=== PATIENT | female | born 1935 | race Caucasian/White ===

== ENCOUNTER 2017-07-18 22:56 | Emergency (ER) | payer MEDICARE, OTHER ==
[2017-07-18] MEDS ORDERED: SODIUM CHLORIDE 0.9% 1000ML 1,000 ML IV SCH (23:15)
[2017-07-18 23:32] LABS: HEMATOCRIT 52 % (35-47); MEAN CORPUSCULAR HEMOGLOBIN 30.5 pg (27.0-32.0); MEAN CORPUSCULAR HGB CONC 34.9 gm/dl (32.0-36.0); MEAN CORPUSCULAR VOLUME 87 fL (81-99)
[2017-07-18] MEDS ORDERED: SODIUM CHLORIDE 0.9% FLUSH 10 ML SOL IV PRN (23:34)
[2017-07-18] MEDS ORDERED: ACETAMINOPHEN 325 MG PO ONE (23:39)
[2017-07-18] MEDS ORDERED: ALBUTEROL NEB SOL 2.5MG/3ML 1 VIAL SOL NEB ONE (23:40)
[2017-07-18] MEDS ORDERED: ALBUTEROL NEB SOL 2.5MG/3ML 1 VIAL SOL ONE (23:41)
[2017-07-18] MEDS ORDERED: ACETAMINOPHEN 325 MG ONE (23:41)
[2017-07-18 23:43] LABS: HEMOGLOBIN 18.1 gm/dl (12.0-15.5)
[2017-07-18 23:49] LABS: INR 1.13 (0.86-1.12)
[2017-07-18 23:53] LABS: BAND NEUTROPHILS % (MANUAL) 9 %; BASOPHILS % (MANUAL) 0 % (0-3); BURR CELLS PRESENT; EOSINOPHILS % (MANUAL) 0 % (0-9); LYMPHOCYTES % (MANUAL) 4 % (10-50); MONOCYTES % (MANUAL) 7 % (0-12); NEUTROPHILS % (MANUAL) 80 % (37-80); POIKILOCYTOSIS SLIGHT AMT
[2017-07-18 23:54] LABS: ALBUMIN 3.1 gm/dl (3.4-5.0); CARBON DIOXIDE 25.7 mEq/L (21-32); CREATININE 1.38 mg/dl (0.60-1.00); POTASSIUM 3.7 mMol/L (3.5-5.1); THYROID STIMULATING HORMONE 4.277 uIU/ml (0.358-3.740); TROP I 0.426 ng/ml (0.000-0.056)
[2017-07-19] MEDS ORDERED: CEFTRIAXONE 1 GM PDS 2 GM in SODIUM CHLORIDE 0.9% 50 ML 50 ML IV ONE (00:06)
[2017-07-19] MEDS ORDERED: AZITHROMYCIN 500 MG PDS IV SCH (00:15)
[2017-07-19] MEDS ORDERED: SODIUM CHLORIDE 0.9% 1000ML 1,000 ML IV ONE (00:36)
[2017-07-19] MEDS ORDERED: AZITHROMYCIN 500 MG PDS IV ONE (00:39)
[2017-07-19] MEDS ORDERED: CEFTRIAXONE 1 GM PDS ONE (00:41)
[2017-07-19 01:03] LABS: APPEARANCE,URINE Clear; BILIRUBIN,URINE 1+ (NEGATIVE); COLOR,URINE Orange; GLUCOSE, URINE (UA) NEGATIVE (NEGATIVE); KETONES,URINE NEGATIVE (NEGATIVE); LEUKOCYTE ESTERASE ,URINE NEGATIVE (NEGATIVE); NITRATE,URINE NEGATIVE (NEGATIVE); OCCULT BLOOD,URINE 2+ (NEG-TRACE)
[2017-07-19] MEDS ORDERED: DILTIAZEM 5 MG/ML SOL IV ONE ×4 (01:04→01:08)
[2017-07-19] MEDS ORDERED: ASPIRIN 81 MG CHEWABLE CTB PO ONE (01:10)
[2017-07-19] MEDS ORDERED: ASPIRIN 81 MG CHEWABLE CTB ONE (01:10)
[2017-07-19] MEDS ORDERED: DILTIAZEM 5 MG/ML 125 MG in SODIUM CHLORIDE 0.9% 100 ML 100 ML IV SCH (01:15)
[2017-07-19 01:18] LABS: BACTERIA 3+ (< 1+); CRYSTALS NEGATIVE (0-3 AVE/HPF); ICTOTEST,URINE NEGATIVE (NEGATIVE)
[2017-07-19 01:49] VITALS: TEMP 100.2
[2017-07-19 02:12] VITALS: BP 125/69; PULSE 130; RESP 20; O2SAT 94
== END 2017-07-19 01:25 | disposition short-term general hospital (02) | DRG 871 ==
LOC: ED 22:56
DX: A41.9 Sepsis, unspecified organism (principal); J18.9 Pneumonia, unspecified organism; I48.91 Unspecified atrial fibrillation; I50.9 Heart failure, unspecified; M62.82 Rhabdomyolysis; N39.0 Urinary tract infection, site not specified; R79.89 Other specified abnormal findings of blood chemistry; E03.9 Hypothyroidism, unspecified; S40.211A Abrasion of right shoulder, initial encounter; S00.81XA Abrasion of other part of head, initial encounter; W19.XXXA Unspecified fall, initial encounter; R53.1 Weakness; R40.2362 Coma scale, best motor response, obeys commands, at arrival to emergency department; R40.2142 Coma scale, eyes open, spontaneous, at arrival to emergency department; R40.2252 Coma scale, best verbal response, oriented, at arrival to emergency department
CPT/HCPCS: 36415; 70450; 71045; 72125; 73030; 80053; 81001; 82550; 83880; 84443; 84484; 85007; 85027; 85610; 87040; 87088; 93005; 96365; 96366; 96374; 99070; 99291; 99292; J0456; J0696; J7613; J3490

== ENCOUNTER 2017-11-10 12:58 | Inpatient (IN) | payer MEDICARE, OTHER ==
[2017-11-10 13:56] LABS: BASOPHILS % (AUTO) 1 % (0-3); EOSINOPHILS % (AUTO) 0 % (0-9); HEMATOCRIT 50 % (35-47); HEMOGLOBIN 16.1 gm/dl (12.0-15.5); LYMPHOCYTES % (AUTO) 9.9 % (10-50); MEAN CORPUSCULAR HEMOGLOBIN 29.6 pg (27.0-32.0); MEAN CORPUSCULAR HGB CONC 32.1 gm/dl (32.0-36.0); MEAN CORPUSCULAR VOLUME 92 fL (81-99); MONOCYTES % (AUTO) 6.1 % (0-12); NEUTROPHILS % (AUTO) 83.4 % (37-80)
[2017-11-10] MEDS ORDERED: SODIUM CHLORIDE 0.9% 1000ML 1,000 ML IV ONE (13:56)
[2017-11-10] MEDS ORDERED: ONDANSETRON HCL 4 MG/2 ML SOL ONE (14:04)
[2017-11-10] MEDS: ONDANSETRON HCL 4 MG/2 ML SOL IV ONE (14:05)
[2017-11-10 14:06] LABS: ALBUMIN 2.5 gm/dl (3.4-5.0); BILIRUBIN,TOTAL 1.8 mg/dl (0.2-1.0); CALCIUM 8.2 mg/dl (8.5-10.1); CARBON DIOXIDE 29.5 mEq/L (21-32); CREATININE 1.15 mg/dl (0.60-1.00); POTASSIUM 3.4 mMol/L (3.5-5.1); TOTAL PROTEIN 6.3 gm/dl (6.4-8.2)
[2017-11-10] MEDS: DEXTROSE/SALINE 0.45/KCL 20MEQ 1,000 ML/1,000 ML SOL IV SCH ×2 (16:52→23:44)
[2017-11-10] MEDS: ENOXAPARIN 40 MG SOL SC SCH (17:58)
[2017-11-11] MEDS: ACETAMINOPHEN 325 MG PO PRN ×2 (01:04→22:06)
[2017-11-11] MEDS: LEVOTHYROXINE SODIUM 50 MCG TAB PO SCH (06:26)
[2017-11-11] MEDS: DEXTROSE/SALINE 0.45/KCL 20MEQ 1,000 ML/1,000 ML SOL IV SCH ×3 (06:28→20:18)
[2017-11-11 07:34] LABS: CREATININE 1.17 mg/dl (0.60-1.00); POTASSIUM 3.6 mMol/L (3.5-5.1)
[2017-11-11 07:37] LABS: BASOPHILS % (AUTO) 0 % (0-3); EOSINOPHILS % (AUTO) 0 % (0-9); HEMATOCRIT 51 % (35-47); HEMOGLOBIN 16.5 gm/dl (12.0-15.5); LYMPHOCYTES % (AUTO) 7.3 % (10-50); MEAN CORPUSCULAR HEMOGLOBIN 30.2 pg (27.0-32.0); MEAN CORPUSCULAR HGB CONC 32.5 gm/dl (32.0-36.0); MEAN CORPUSCULAR VOLUME 93 fL (81-99); MONOCYTES % (AUTO) 8.9 % (0-12); NEUTROPHILS % (AUTO) 83.4 % (37-80)
[2017-11-11 07:48] LABS: CARBON DIOXIDE 27.9 mEq/L (21-32)
[2017-11-11] MEDS: POTASSIUM CHLORIDE 10 MEQ TER PO SCH (09:22)
[2017-11-11] MEDS: CHOLECALCIFEROL 1,000 IU TAB PO SCH (09:22)
[2017-11-11] MEDS: DILTIAZEM ER 120 MG C24 PO SCH (09:22)
[2017-11-11] MEDS: BUMETANIDE 1 MG TAB PO SCH (09:22)
[2017-11-11] MEDS: SERTRALINE HYDROCHLORIDE 50 MG TAB PO SCH (09:23)
[2017-11-11] MEDS: ENOXAPARIN 40 MG SOL SC SCH (09:23)
[2017-11-11] MEDS: ONDANSETRON HCL 4 MG/2 ML SOL IV ONE (12:20)
[2017-11-11] MEDS: ONDANSETRON 4 MG ODT BU PRN (16:31)
[2017-11-12] MEDS: DEXTROSE/SALINE 0.45/KCL 20MEQ 1,000 ML/1,000 ML SOL IV SCH ×3 (03:02→19:40)
[2017-11-12] MEDS: LEVOTHYROXINE SODIUM 50 MCG TAB PO SCH (06:58)
[2017-11-12] MEDS: ENOXAPARIN 40 MG SOL SC SCH (09:53)
[2017-11-12] MEDS: BUMETANIDE 1 MG TAB PO SCH (09:57)
[2017-11-12] MEDS: VANCOMYCIN HCL 125 MG CAP PO SCH ×4 (09:57→21:40)
[2017-11-12] MEDS: POTASSIUM CHLORIDE 10 MEQ TER PO SCH (09:58)
[2017-11-12] MEDS: SERTRALINE HYDROCHLORIDE 50 MG TAB PO SCH (09:58)
[2017-11-12] MEDS: CHOLECALCIFEROL 1,000 IU TAB PO SCH (09:58)
[2017-11-12] MEDS: DILTIAZEM ER 120 MG C24 PO SCH (09:58)
[2017-11-12] MEDS: ONDANSETRON 4 MG ODT BU PRN (17:17)
[2017-11-13] MEDS: LEVOTHYROXINE SODIUM 50 MCG TAB PO SCH (06:25)
[2017-11-13] MEDS: DEXTROSE/SALINE 0.45/KCL 20MEQ 1,000 ML/1,000 ML SOL IV SCH ×2 (07:16→17:18)
[2017-11-13 08:00] LABS: HEMATOCRIT 49 % (35-47); HEMOGLOBIN 16.4 gm/dl (12.0-15.5); MEAN CORPUSCULAR HGB CONC 33.1 gm/dl (32.0-36.0); MEAN CORPUSCULAR VOLUME 90 fL (81-99)
[2017-11-13 08:07] LABS: CALCIUM 8.2 mg/dl (8.5-10.1); CARBON DIOXIDE 23.4 mEq/L (21-32); POTASSIUM 4.4 mMol/L (3.5-5.1)
[2017-11-13 08:53] LABS: BAND NEUTROPHILS % (MANUAL) 6 %; BASOPHILS % (MANUAL) 0 % (0-3); EOSINOPHILS % (MANUAL) 0 % (0-9); LYMPHOCYTES % (MANUAL) 16 % (10-50); MONOCYTES % (MANUAL) 14 % (0-12); NEUTROPHILS % (MANUAL) 64 % (37-80); NORMAL RBCS NORMAL RBCS
[2017-11-13] MEDS: BUMETANIDE 1 MG TAB PO SCH (10:03)
[2017-11-13] MEDS: POTASSIUM CHLORIDE 10 MEQ TER PO SCH (10:03)
[2017-11-13] MEDS: DILTIAZEM ER 120 MG C24 PO SCH (10:03)
[2017-11-13] MEDS: VANCOMYCIN HCL 125 MG CAP PO SCH ×4 (10:04→20:47)
[2017-11-13] MEDS: CHOLECALCIFEROL 1,000 IU TAB PO SCH (10:04)
[2017-11-13] MEDS: SERTRALINE HYDROCHLORIDE 50 MG TAB PO SCH (10:05)
[2017-11-13] MEDS: ENOXAPARIN 40 MG SOL SC SCH (10:05)
[2017-11-14] MEDS: DEXTROSE/SALINE 0.45/KCL 20MEQ 1,000 ML/1,000 ML SOL IV SCH ×2 (01:45→12:33)
[2017-11-14] MEDS: LEVOTHYROXINE SODIUM 50 MCG TAB PO SCH (07:42)
[2017-11-14] MEDS: DILTIAZEM ER 120 MG C24 PO SCH (08:15)
[2017-11-14] MEDS: VANCOMYCIN HCL 125 MG CAP PO SCH ×4 (08:15→20:28)
[2017-11-14] MEDS: POTASSIUM CHLORIDE 10 MEQ TER PO SCH (08:15)
[2017-11-14] MEDS: CHOLECALCIFEROL 1,000 IU TAB PO SCH (08:15)
[2017-11-14] MEDS: SERTRALINE HYDROCHLORIDE 50 MG TAB PO SCH (08:16)
[2017-11-14] MEDS: ENOXAPARIN 40 MG SOL SC SCH (08:20)
[2017-11-14] MEDS: BUMETANIDE 1 MG TAB PO SCH (08:22)
[2017-11-15] MEDS: LEVOTHYROXINE SODIUM 50 MCG TAB PO SCH (06:19)
[2017-11-15] MEDS: BUMETANIDE 1 MG TAB PO SCH (09:12)
[2017-11-15] MEDS: DILTIAZEM ER 120 MG C24 PO SCH (09:13)
[2017-11-15] MEDS: VANCOMYCIN HCL 125 MG CAP PO SCH ×4 (09:13→20:25)
[2017-11-15] MEDS: SERTRALINE HYDROCHLORIDE 50 MG TAB PO SCH (09:13)
[2017-11-15] MEDS: POTASSIUM CHLORIDE 10 MEQ TER PO SCH (09:13)
[2017-11-15] MEDS: CHOLECALCIFEROL 1,000 IU TAB PO SCH (09:14)
[2017-11-15] MEDS: ENOXAPARIN 40 MG SOL SC SCH (09:23)
[2017-11-16] MEDS: LEVOTHYROXINE SODIUM 50 MCG TAB PO SCH (06:38)
[2017-11-16 07:10] LABS: CREATININE 0.91 mg/dl (0.60-1.00); POTASSIUM 4.2 mMol/L (3.5-5.1)
[2017-11-16 07:22] LABS: CALCIUM 7.8 mg/dl (8.5-10.1)
[2017-11-16 07:25] LABS: HEMATOCRIT 52 % (35-47); MEAN CORPUSCULAR HEMOGLOBIN 29.7 pg (27.0-32.0); MEAN CORPUSCULAR HGB CONC 32.5 gm/dl (32.0-36.0); MEAN CORPUSCULAR VOLUME 91 fL (81-99)
[2017-11-16 07:53] LABS: BAND NEUTROPHILS % (MANUAL) 27 %; BASOPHILS % (MANUAL) 0 % (0-3); EOSINOPHILS % (MANUAL) 2 % (0-9); LYMPHOCYTES % (MANUAL) 22 % (10-50); MONOCYTES % (MANUAL) 12 % (0-12); NEUTROPHILS % (MANUAL) 37 % (37-80); NORMAL RBCS PRESENT
[2017-11-16] MEDS: VANCOMYCIN HCL 125 MG CAP PO SCH ×4 (10:44→20:12)
[2017-11-16] MEDS: POTASSIUM CHLORIDE 10 MEQ TER PO SCH (10:44)
[2017-11-16] MEDS: DILTIAZEM ER 120 MG C24 PO SCH (10:44)
[2017-11-16] MEDS: BUMETANIDE 1 MG TAB PO SCH (10:44)
[2017-11-16] MEDS: CHOLECALCIFEROL 1,000 IU TAB PO SCH (10:45)
[2017-11-16] MEDS: ENOXAPARIN 40 MG SOL SC SCH (10:45)
[2017-11-16] MEDS: SERTRALINE HYDROCHLORIDE 50 MG TAB PO SCH (10:45)
[2017-11-17] MEDS: LEVOTHYROXINE SODIUM 50 MCG TAB PO SCH (06:40)
[2017-11-17] MEDS: POTASSIUM CHLORIDE 10 MEQ TER PO SCH (08:38)
[2017-11-17] MEDS: DILTIAZEM ER 120 MG C24 PO SCH (08:38)
[2017-11-17] MEDS: BUMETANIDE 1 MG TAB PO SCH (08:38)
[2017-11-17] MEDS: CHOLECALCIFEROL 1,000 IU TAB PO SCH (08:38)
[2017-11-17] MEDS: ENOXAPARIN 40 MG SOL SC SCH (08:39)
[2017-11-17] MEDS: VANCOMYCIN HCL 125 MG CAP PO SCH (08:39)
[2017-11-17] MEDS: SERTRALINE HYDROCHLORIDE 50 MG TAB PO SCH (08:39)
[2017-11-17] MEDS: METRONIDAZOLE 250 MG TAB PO SCH ×2 (13:02→20:48)
[2017-11-18] MEDS: LEVOTHYROXINE SODIUM 50 MCG TAB PO SCH (06:32)
[2017-11-18] MEDS: METRONIDAZOLE 250 MG TAB PO SCH ×3 (10:24→20:32)
[2017-11-18] MEDS: DILTIAZEM ER 120 MG C24 PO SCH (10:24)
[2017-11-18] MEDS: CHOLECALCIFEROL 1,000 IU TAB PO SCH (10:25)
[2017-11-18] MEDS: SERTRALINE HYDROCHLORIDE 50 MG TAB PO SCH (10:25)
[2017-11-18] MEDS: POTASSIUM CHLORIDE 10 MEQ TER PO SCH (10:25)
[2017-11-18] MEDS: ENOXAPARIN 40 MG SOL SC SCH (10:27)
[2017-11-18] MEDS: LACTOBACILLUS ACIDOPHILUS/PE 1 TAB TAB PO SCH (20:32)
[2017-11-19] MEDS: LEVOTHYROXINE SODIUM 50 MCG TAB PO SCH (06:01)
[2017-11-19] MEDS: LACTOBACILLUS ACIDOPHILUS/PE 1 TAB TAB PO SCH ×2 (09:42→20:11)
[2017-11-19] MEDS: DILTIAZEM ER 120 MG C24 PO SCH (09:42)
[2017-11-19] MEDS: METRONIDAZOLE 250 MG TAB PO SCH ×3 (09:42→20:13)
[2017-11-19] MEDS: POTASSIUM CHLORIDE 10 MEQ TER PO SCH (09:43)
[2017-11-19] MEDS: CHOLECALCIFEROL 1,000 IU TAB PO SCH (09:43)
[2017-11-19] MEDS: SERTRALINE HYDROCHLORIDE 50 MG TAB PO SCH (09:43)
[2017-11-19] MEDS: ENOXAPARIN 40 MG SOL SC SCH (09:44)
[2017-11-19] MEDS: CLOTRIMAZOLE 1% CREAM TOP SCH ×2 (13:16→20:11)
[2017-11-20] MEDS: LEVOTHYROXINE SODIUM 50 MCG TAB PO SCH (06:18)
[2017-11-20 07:33] VITALS: BP 100/60; PULSE 64; RESP 16; TEMP 98.4; O2SAT 95
[2017-11-20] MEDS: ENOXAPARIN 40 MG SOL SC SCH (08:47)
[2017-11-20] MEDS: DILTIAZEM ER 120 MG C24 PO SCH (08:48)
[2017-11-20] MEDS: LACTOBACILLUS ACIDOPHILUS/PE 1 TAB TAB PO SCH (08:48)
[2017-11-20] MEDS: POTASSIUM CHLORIDE 10 MEQ TER PO SCH (08:49)
[2017-11-20] MEDS: CHOLECALCIFEROL 1,000 IU TAB PO SCH (08:49)
[2017-11-20] MEDS: METRONIDAZOLE 250 MG TAB PO SCH (08:49)
[2017-11-20] MEDS: SERTRALINE HYDROCHLORIDE 50 MG TAB PO SCH (08:50)
[2017-11-20] MEDS: CLOTRIMAZOLE 1% CREAM TOP SCH (11:44)
== END 2017-11-20 13:10 | disposition swing bed (61) | DRG 945 ==
LOC: ED 12:58 → ACUTE CARE 15:45 → UNDOADMOB 15:45 → ACUTE CARE 16:05 → OBSVTOIN 11-12 08:45 → ACUTE CARE 11-12 17:09
PROVIDERS: ADMIT Family Medicine; ATTEND Family Medicine
PROC: F01H1ZZ Integumentary Integrity Assessment of Integumentary System - Whole Body (ICD-10-PCS; principal; 2017-11-15)
PROC: F01K5YZ Range of Motion and Joint Integrity Assessment of Musculoskeletal System - Upper Back / Upper Extremity using Other Equipment (ICD-10-PCS; 2017-11-15)
PROC: F01K0FZ Muscle Performance Assessment of Musculoskeletal System - Upper Back / Upper Extremity using Assistive, Adaptive, Supportive or Protective Equipment (ICD-10-PCS; 2017-11-15)
PROC: F02Z3ZZ Grooming/Personal Hygiene Assessment (ICD-10-PCS; 2017-11-15)
DX: R53.1 Weakness (principal); A04.9 Bacterial intestinal infection, unspecified; R11.2 Nausea with vomiting, unspecified; I10 Essential (primary) hypertension; R19.7 Diarrhea, unspecified; L97.821 Non-pressure chronic ulcer of other part of left lower leg limited to breakdown of skin; Z91.81 History of falling; R11.0 Nausea; K52.9 Noninfective gastroenteritis and colitis, unspecified; L30.9 Dermatitis, unspecified; R41.0 Disorientation, unspecified; I95.9 Hypotension, unspecified
CPT/HCPCS: 36415; 80048; 80053; 82272; 85007; 85025; 85027; 96365; 96374; 99219; 99284; J1650; J2405; A4450; A6232; A6446; A9270-GY

== ENCOUNTER 2017-11-20 12:52 | Inpatient (IN) | payer MEDICARE, OTHER ==
[2017-11-20] MEDS ORDERED: ONDANSETRON 4 MG ODT BU PRN (13:04)
[2017-11-20] MEDS: METRONIDAZOLE 250 MG TAB PO SCH ×2 (15:19→20:34)
[2017-11-20] MEDS: LACTOBACILLUS ACIDOPHILUS/PE 1 TAB TAB PO SCH (20:34)
[2017-11-20] MEDS: CLOTRIMAZOLE 1% CREAM TOP SCH (20:34)
[2017-11-21] MEDS: LEVOTHYROXINE SODIUM 50 MCG TAB PO SCH (06:15)
[2017-11-21] MEDS ORDERED: POTASSIUM CHLORIDE 10 MEQ TER ONE ×2 (09:01)
[2017-11-21] MEDS: LACTOBACILLUS ACIDOPHILUS/PE 1 TAB TAB PO SCH ×2 (09:05→20:14)
[2017-11-21] MEDS: CHOLECALCIFEROL 1,000 IU TAB PO SCH (09:06)
[2017-11-21] MEDS: DILTIAZEM ER 120 MG C24 PO SCH (09:06)
[2017-11-21] MEDS: CLOTRIMAZOLE 1% CREAM TOP SCH ×2 (09:06→20:15)
[2017-11-21] MEDS: POTASSIUM CHLORIDE 10 MEQ CAPSULE PO SCH (09:06)
[2017-11-21] MEDS: METRONIDAZOLE 250 MG TAB PO SCH ×3 (09:06→20:14)
[2017-11-21] MEDS: SERTRALINE HYDROCHLORIDE 50 MG TAB PO SCH (09:07)
[2017-11-21] MEDS: ENOXAPARIN 40 MG SOL SC SCH (09:16)
[2017-11-22] MEDS: LEVOTHYROXINE SODIUM 50 MCG TAB PO SCH (06:17)
[2017-11-22] MEDS: SERTRALINE HYDROCHLORIDE 50 MG TAB PO SCH (08:45)
[2017-11-22] MEDS: DILTIAZEM ER 120 MG C24 PO SCH (08:45)
[2017-11-22] MEDS: LACTOBACILLUS ACIDOPHILUS/PE 1 TAB TAB PO SCH ×2 (08:45→20:29)
[2017-11-22] MEDS: METRONIDAZOLE 250 MG TAB PO SCH ×3 (08:46→20:28)
[2017-11-22] MEDS: ENOXAPARIN 40 MG SOL SC SCH (08:46)
[2017-11-22] MEDS: CHOLECALCIFEROL 1,000 IU TAB PO SCH (08:46)
[2017-11-22] MEDS: CLOTRIMAZOLE 1% CREAM TOP SCH ×2 (08:51→20:29)
[2017-11-22] MEDS: POTASSIUM CHLORIDE 10 MEQ CAPSULE PO SCH (10:15)
[2017-11-23] MEDS: LEVOTHYROXINE SODIUM 50 MCG TAB PO SCH (06:45)
[2017-11-23] MEDS: ENOXAPARIN 40 MG SOL SC SCH (08:28)
[2017-11-23] MEDS: LACTOBACILLUS ACIDOPHILUS/PE 1 TAB TAB PO SCH ×2 (08:29→20:02)
[2017-11-23] MEDS: METRONIDAZOLE 250 MG TAB PO SCH ×3 (08:30→20:02)
[2017-11-23] MEDS: DILTIAZEM ER 120 MG C24 PO SCH (08:30)
[2017-11-23] MEDS: CHOLECALCIFEROL 1,000 IU TAB PO SCH (08:31)
[2017-11-23] MEDS: POTASSIUM CHLORIDE 10 MEQ CAPSULE PO SCH (08:31)
[2017-11-23] MEDS: CLOTRIMAZOLE 1% CREAM TOP SCH ×2 (08:31→20:01)
[2017-11-23] MEDS: SERTRALINE HYDROCHLORIDE 50 MG TAB PO SCH (08:32)
[2017-11-24] MEDS: LEVOTHYROXINE SODIUM 50 MCG TAB PO SCH (06:46)
[2017-11-24] MEDS: CHOLECALCIFEROL 1,000 IU TAB PO SCH (09:57)
[2017-11-24] MEDS: METRONIDAZOLE 250 MG TAB PO SCH ×3 (09:58→21:03)
[2017-11-24] MEDS: POTASSIUM CHLORIDE 10 MEQ CAPSULE PO SCH (09:58)
[2017-11-24] MEDS: LACTOBACILLUS ACIDOPHILUS/PE 1 TAB TAB PO SCH ×2 (09:59→21:02)
[2017-11-24] MEDS: SERTRALINE HYDROCHLORIDE 50 MG TAB PO SCH (09:59)
[2017-11-24] MEDS: CLOTRIMAZOLE 1% CREAM TOP SCH ×2 (09:59→21:03)
[2017-11-24] MEDS: DILTIAZEM ER 120 MG C24 PO SCH (09:59)
[2017-11-24] MEDS: ENOXAPARIN 40 MG SOL SC SCH (10:00)
[2017-11-25] MEDS: LEVOTHYROXINE SODIUM 50 MCG TAB PO SCH (06:51)
[2017-11-25] MEDS: CLOTRIMAZOLE 1% CREAM TOP SCH ×2 (08:54→20:41)
[2017-11-25] MEDS: LACTOBACILLUS ACIDOPHILUS/PE 1 TAB TAB PO SCH ×2 (08:55→20:40)
[2017-11-25] MEDS: DILTIAZEM ER 120 MG C24 PO SCH (08:56)
[2017-11-25] MEDS: POTASSIUM CHLORIDE 10 MEQ CAPSULE PO SCH (08:56)
[2017-11-25] MEDS: METRONIDAZOLE 250 MG TAB PO SCH ×3 (08:56→20:40)
[2017-11-25] MEDS: SERTRALINE HYDROCHLORIDE 50 MG TAB PO SCH (08:57)
[2017-11-25] MEDS: CHOLECALCIFEROL 1,000 IU TAB PO SCH (08:59)
[2017-11-25] MEDS: ENOXAPARIN 40 MG SOL SC SCH (09:00)
[2017-11-26] MEDS: LEVOTHYROXINE SODIUM 50 MCG TAB PO SCH (06:26)
[2017-11-26] MEDS: METRONIDAZOLE 250 MG TAB PO SCH ×3 (09:46→20:54)
[2017-11-26] MEDS: LACTOBACILLUS ACIDOPHILUS/PE 1 TAB TAB PO SCH ×2 (09:47→20:52)
[2017-11-26] MEDS: DILTIAZEM ER 120 MG C24 PO SCH (09:48)
[2017-11-26] MEDS: ENOXAPARIN 40 MG SOL SC SCH (09:48)
[2017-11-26] MEDS: CLOTRIMAZOLE 1% CREAM TOP SCH ×2 (09:48→20:54)
[2017-11-26] MEDS: POTASSIUM CHLORIDE 10 MEQ CAPSULE PO SCH (09:49)
[2017-11-26] MEDS: CHOLECALCIFEROL 1,000 IU TAB PO SCH (09:49)
[2017-11-26] MEDS: SERTRALINE HYDROCHLORIDE 50 MG TAB PO SCH (09:50)
[2017-11-27] MEDS: ACETAMINOPHEN 325 MG PO PRN ×2 (06:30→18:35)
[2017-11-27] MEDS: LEVOTHYROXINE SODIUM 50 MCG TAB PO SCH (06:31)
[2017-11-27 07:07] LABS: CALCIUM 8.2 mg/dl (8.5-10.1); CARBON DIOXIDE 28.3 mEq/L (21-32); CREATININE 0.84 mg/dl (0.60-1.00); POTASSIUM 3.6 mMol/L (3.5-5.1)
[2017-11-27] MEDS: SERTRALINE HYDROCHLORIDE 50 MG TAB PO SCH (08:50)
[2017-11-27] MEDS: METRONIDAZOLE 250 MG TAB PO SCH ×3 (08:50→20:34)
[2017-11-27] MEDS: DILTIAZEM ER 120 MG C24 PO SCH (08:50)
[2017-11-27] MEDS: LACTOBACILLUS ACIDOPHILUS/PE 1 TAB TAB PO SCH ×2 (08:51→20:33)
[2017-11-27] MEDS: CHOLECALCIFEROL 1,000 IU TAB PO SCH (08:51)
[2017-11-27] MEDS: CLOTRIMAZOLE 1% CREAM TOP SCH ×2 (08:52→20:34)
[2017-11-27] MEDS: ENOXAPARIN 40 MG SOL SC SCH (08:53)
[2017-11-28] MEDS: LEVOTHYROXINE SODIUM 50 MCG TAB PO SCH (06:35)
[2017-11-28] MEDS: ACETAMINOPHEN 325 MG PO PRN ×2 (06:35→14:02)
[2017-11-28] MEDS: LACTOBACILLUS ACIDOPHILUS/PE 1 TAB TAB PO SCH ×2 (08:56→20:57)
[2017-11-28] MEDS: METRONIDAZOLE 250 MG TAB PO SCH ×3 (08:56→20:57)
[2017-11-28] MEDS: CLOTRIMAZOLE 1% CREAM TOP SCH ×2 (08:57→21:00)
[2017-11-28] MEDS: ENOXAPARIN 40 MG SOL SC SCH (08:57)
[2017-11-28] MEDS: DILTIAZEM ER 120 MG C24 PO SCH (08:57)
[2017-11-28] MEDS: CHOLECALCIFEROL 1,000 IU TAB PO SCH (08:58)
[2017-11-28] MEDS: SERTRALINE HYDROCHLORIDE 50 MG TAB PO SCH (08:59)
[2017-11-28] MEDS ORDERED: POTASSIUM CHLORIDE 10 MEQ TER PO SCH (09:00)
[2017-11-28] MEDS: BUMETANIDE 1 MG TAB PO SCH (09:00)
[2017-11-29] MEDS: ACETAMINOPHEN 325 MG PO PRN ×2 (06:50→20:13)
[2017-11-29] MEDS: LEVOTHYROXINE SODIUM 50 MCG TAB PO SCH (06:50)
[2017-11-29 07:14] LABS: CALCIUM 7.9 mg/dl (8.5-10.1); CREATININE 0.8 mg/dl (0.60-1.00); POTASSIUM 3.6 mMol/L (3.5-5.1)
[2017-11-29 07:15] LABS: CARBON DIOXIDE 31.2 mEq/L (21-32)
[2017-11-29 08:50] VITALS: RESP 16
[2017-11-29] MEDS: LACTOBACILLUS ACIDOPHILUS/PE 1 TAB TAB PO SCH ×2 (08:50→20:12)
[2017-11-29] MEDS: BUMETANIDE 1 MG TAB PO SCH (08:51)
[2017-11-29] MEDS: POTASSIUM CHLORIDE 10 MEQ CAPSULE PO SCH (08:51)
[2017-11-29] MEDS: METRONIDAZOLE 250 MG TAB PO SCH ×3 (08:52→20:12)
[2017-11-29] MEDS: CHOLECALCIFEROL 1,000 IU TAB PO SCH (08:52)
[2017-11-29] MEDS: SERTRALINE HYDROCHLORIDE 50 MG TAB PO SCH (08:58)
[2017-11-29] MEDS: DILTIAZEM ER 120 MG C24 PO SCH (08:58)
[2017-11-29] MEDS: CLOTRIMAZOLE 1% CREAM TOP SCH ×2 (08:58→20:13)
[2017-11-29] MEDS: ENOXAPARIN 40 MG SOL SC SCH (09:59)
[2017-11-30] MEDS: LEVOTHYROXINE SODIUM 50 MCG TAB PO SCH (06:03)
[2017-11-30] MEDS: POTASSIUM CHLORIDE 10 MEQ CAPSULE PO SCH (09:43)
[2017-11-30] MEDS: CHOLECALCIFEROL 1,000 IU TAB PO SCH (09:43)
[2017-11-30] MEDS: DILTIAZEM ER 120 MG C24 PO SCH (09:44)
[2017-11-30] MEDS: SERTRALINE HYDROCHLORIDE 50 MG TAB PO SCH (09:44)
[2017-11-30] MEDS: BUMETANIDE 1 MG TAB PO SCH (09:44)
[2017-11-30] MEDS: LACTOBACILLUS ACIDOPHILUS/PE 1 TAB TAB PO SCH ×2 (09:44→22:27)
[2017-11-30] MEDS: CLOTRIMAZOLE 1% CREAM TOP SCH ×2 (09:44→20:44)
[2017-11-30] MEDS: METRONIDAZOLE 250 MG TAB PO SCH ×3 (09:44→20:45)
[2017-11-30] MEDS: ENOXAPARIN 40 MG SOL SC SCH (09:54)
[2017-12-01] MEDS: LEVOTHYROXINE SODIUM 50 MCG TAB PO SCH (06:33)
[2017-12-01] MEDS: BUMETANIDE 1 MG TAB PO SCH (08:36)
[2017-12-01] MEDS: LACTOBACILLUS ACIDOPHILUS/PE 1 TAB TAB PO SCH ×2 (08:36→21:14)
[2017-12-01] MEDS: DILTIAZEM ER 120 MG C24 PO SCH (08:36)
[2017-12-01] MEDS: CLOTRIMAZOLE 1% CREAM TOP SCH ×2 (08:36→21:37)
[2017-12-01] MEDS: METRONIDAZOLE 250 MG TAB PO SCH ×3 (08:36→21:14)
[2017-12-01] MEDS: CHOLECALCIFEROL 1,000 IU TAB PO SCH (08:36)
[2017-12-01] MEDS: POTASSIUM CHLORIDE 10 MEQ CAPSULE PO SCH (08:37)
[2017-12-01] MEDS: SERTRALINE HYDROCHLORIDE 50 MG TAB PO SCH (08:37)
[2017-12-01] MEDS: ENOXAPARIN 40 MG SOL SC SCH (08:47)
[2017-12-02] MEDS: LEVOTHYROXINE SODIUM 50 MCG TAB PO SCH (06:25)
[2017-12-02 10:02] VITALS: BP 93/62; PULSE 85; TEMP 98.4; O2SAT 95
[2017-12-02] MEDS: CLOTRIMAZOLE 1% CREAM TOP SCH (10:21)
[2017-12-02] MEDS: METRONIDAZOLE 250 MG TAB PO SCH (10:21)
[2017-12-02] MEDS: LACTOBACILLUS ACIDOPHILUS/PE 1 TAB TAB PO SCH (10:21)
[2017-12-02] MEDS: CHOLECALCIFEROL 1,000 IU TAB PO SCH (10:22)
[2017-12-02] MEDS: DILTIAZEM ER 120 MG C24 PO SCH (10:22)
[2017-12-02] MEDS: POTASSIUM CHLORIDE 10 MEQ CAPSULE PO SCH (10:23)
[2017-12-02] MEDS: SERTRALINE HYDROCHLORIDE 50 MG TAB PO SCH (10:23)
[2017-12-02] MEDS: ENOXAPARIN 40 MG SOL SC SCH (10:23)
[2017-12-02] MEDS: BUMETANIDE 1 MG TAB PO SCH (10:23)
== END 2017-12-02 12:20 | disposition home or self-care (01) | DRG 392 ==
LOC: ACUTE CARE 13:15
PROVIDERS: ADMIT Family Medicine; ATTEND Family Medicine
PROC: F01ZCFZ Transfer Assessment using Assistive, Adaptive, Supportive or Protective Equipment (ICD-10-PCS; principal; 2017-11-21)
PROC: F01K5YZ Range of Motion and Joint Integrity Assessment of Musculoskeletal System - Upper Back / Upper Extremity using Other Equipment (ICD-10-PCS; 2017-11-22)
PROC: F01H1ZZ Integumentary Integrity Assessment of Integumentary System - Whole Body (ICD-10-PCS; 2017-11-22)
PROC: F02Z3FZ Grooming/Personal Hygiene Assessment using Assistive, Adaptive, Supportive or Protective Equipment (ICD-10-PCS; 2017-11-22)
DX: R19.7 Diarrhea, unspecified (principal); R53.1 Weakness; I10 Essential (primary) hypertension; E78.5 Hyperlipidemia, unspecified; E03.9 Hypothyroidism, unspecified; R11.2 Nausea with vomiting, unspecified; K52.9 Noninfective gastroenteritis and colitis, unspecified; E86.0 Dehydration
CPT/HCPCS: 36415; 80048; J1650; A6232; A6446; A9270-GY

== ENCOUNTER 2017-12-04 15:08 | Inpatient (IN) | payer MEDICARE, OTHER ==
[2017-12-04] MEDS ORDERED: SODIUM CHLORIDE 0.9% 1000ML 1,000 ML IV ONE (15:23)
[2017-12-04 15:41] LABS: BASOPHILS % (AUTO) 0 % (0-3); EOSINOPHILS % (AUTO) 1 % (0-9); HEMATOCRIT 46 % (35-47); HEMOGLOBIN 14.8 gm/dl (12.0-15.5); LYMPHOCYTES % (AUTO) 9.3 % (10-50); MEAN CORPUSCULAR HEMOGLOBIN 29.7 pg (27.0-32.0); MEAN CORPUSCULAR HGB CONC 32.3 gm/dl (32.0-36.0); MEAN CORPUSCULAR VOLUME 92 fL (81-99); MONOCYTES % (AUTO) 7.5 % (0-12); NEUTROPHILS % (AUTO) 82.1 % (37-80)
[2017-12-04 15:45] LABS: CALCIUM 8.5 mg/dl (8.5-10.1); CARBON DIOXIDE 27.1 mEq/L (21-32); CREATININE 0.91 mg/dl (0.60-1.00); MAGNESIUM 1.5 mg/dl (1.8-2.4); POTASSIUM 3.3 mMol/L (3.5-5.1)
[2017-12-04] MEDS: SODIUM CHLORIDE 0.9% FLUSH 10 ML SOL IV PRN ×3 (15:45→21:26)
[2017-12-04] MEDS ORDERED: MAGNESIUM SULFATE 5 GM/10 ML SOL IV ONE (16:22)
[2017-12-04] MEDS ORDERED: MAGNESIUM SULFATE 5 GM/10 ML SOL ONE (17:13)
[2017-12-04] MEDS ORDERED: METRONIDAZOLE 500 MG (PREMIX) 500 MG/100 ML SOL IV ONE (18:44)
[2017-12-04] MEDS ORDERED: SODIUM CHLORIDE 0.9% 50 ML 25 ML IV PRN (19:25)
[2017-12-04] MEDS ORDERED: ACETAMINOPHEN 325 MG PO PRN (19:26)
[2017-12-04] MEDS ORDERED: MAGNESIUM OXIDE 400 MG TAB PO ONE (20:03)
[2017-12-04] MEDS ORDERED: POTASSIUM CHLORIDE 10 MEQ TER PO ONE (20:04)
[2017-12-04] MEDS ORDERED: SODIUM CHLORIDE 0.9% 1000ML 1,000 ML with POTASSIUM CHLORIDE 2 MEQ/ML 20 MEQ IV SCH (20:15)
[2017-12-04] MEDS: METRONIDAZOLE 500 MG (PREMIX) 500 MG/100 ML SOL IV SCH (20:19)
[2017-12-04] MEDS: VANCOMYCIN HCL 125 MG CAP PO SCH (20:42)
[2017-12-04] MEDS: CLOTRIMAZOLE 1% CREAM TOP SCH (20:43)
[2017-12-04] MEDS: LACTOBACILLUS ACIDOPHILUS/PE 1 TAB TAB PO SCH (20:44)
[2017-12-04] MEDS ORDERED: VANCOMYCIN HCL 125 MG CAP PO SCH (21:00)
[2017-12-04] MEDS: SODIUM CHLORIDE/KCL 20MEQ 1,000 ML IV SCH (21:25)
[2017-12-05] MEDS: METRONIDAZOLE 500 MG (PREMIX) 500 MG/100 ML SOL IV SCH ×4 (01:55→19:17)
[2017-12-05] MEDS: LEVOTHYROXINE SODIUM 50 MCG TAB PO SCH (06:19)
[2017-12-05 07:12] LABS: BASOPHILS % (AUTO) 1 % (0-3); EOSINOPHILS % (AUTO) 0 % (0-9); HEMATOCRIT 42 % (35-47); HEMOGLOBIN 13.9 gm/dl (12.0-15.5); LYMPHOCYTES % (AUTO) 11.1 % (10-50); MEAN CORPUSCULAR HEMOGLOBIN 30.3 pg (27.0-32.0); MEAN CORPUSCULAR HGB CONC 33.2 gm/dl (32.0-36.0); MEAN CORPUSCULAR VOLUME 91 fL (81-99); MONOCYTES % (AUTO) 9.5 % (0-12); NEUTROPHILS % (AUTO) 78.4 % (37-80)
[2017-12-05 07:21] LABS: CALCIUM 7.6 mg/dl (8.5-10.1); CREATININE 0.8 mg/dl (0.60-1.00)
[2017-12-05 07:27] LABS: CARBON DIOXIDE 26.3 mEq/L (21-32); POTASSIUM 3.1 mMol/L (3.5-5.1)
[2017-12-05] MEDS: SODIUM CHLORIDE/KCL 20MEQ 1,000 ML IV SCH ×2 (08:27→18:34)
[2017-12-05] MEDS: SERTRALINE HYDROCHLORIDE 50 MG TAB PO SCH (08:29)
[2017-12-05] MEDS: VANCOMYCIN HCL 125 MG CAP PO SCH ×4 (08:29→20:39)
[2017-12-05] MEDS: DILTIAZEM ER 120 MG C24 PO SCH (08:29)
[2017-12-05] MEDS: ENOXAPARIN 40 MG SOL SC SCH (08:32)
[2017-12-05] MEDS ORDERED: POTASSIUM CHLORIDE 2 MEQ/ML 20 MEQ, LIDOCAINE HCL 1% MDV 2 ML in SODIUM CHLORIDE 0.9% 2... IV ONE (08:52)
[2017-12-05] MEDS: CLOTRIMAZOLE 1% CREAM TOP SCH ×2 (09:17→20:06)
[2017-12-05] MEDS: BUMETANIDE 1 MG TAB PO SCH (09:17)
[2017-12-05] MEDS ORDERED: POTASSIUM CHLORIDE 2 MEQ/ML 40 MEQ, LIDOCAINE HCL 1% MDV 2 ML in SODIUM CHLORIDE 0.9% 5... IV ONE (09:21)
[2017-12-05] MEDS ORDERED: POTASSIUM CHLORIDE 2 MEQ/ML SOL IV ONE ×2 (10:22→10:41)
[2017-12-05] MEDS ORDERED: LIDOCAINE HCL 1% MPF 30 SOL ONE (10:23)
[2017-12-05] MEDS: LACTOBACILLUS ACIDOPHILUS/PE 1 TAB TAB PO SCH ×2 (11:00→20:40)
[2017-12-06] MEDS: METRONIDAZOLE 500 MG (PREMIX) 500 MG/100 ML SOL IV SCH ×2 (01:22→07:45)
[2017-12-06] MEDS: SODIUM CHLORIDE/KCL 20MEQ 1,000 ML IV SCH ×5 (04:13→20:06)
[2017-12-06] MEDS: LEVOTHYROXINE SODIUM 50 MCG TAB PO SCH (06:16)
[2017-12-06 07:23] LABS: BASOPHILS % (AUTO) 1 % (0-3); CALCIUM 7.1 mg/dl (8.5-10.1); CARBON DIOXIDE 22.8 mEq/L (21-32); CREATININE 0.79 mg/dl (0.60-1.00); EOSINOPHILS % (AUTO) 3 % (0-9); HEMATOCRIT 42 % (35-47); HEMOGLOBIN 13.9 gm/dl (12.0-15.5); LYMPHOCYTES % (AUTO) 17.5 % (10-50); MEAN CORPUSCULAR HEMOGLOBIN 30.5 pg (27.0-32.0); MEAN CORPUSCULAR VOLUME 92 fL (81-99); MONOCYTES % (AUTO) 10.7 % (0-12); NEUTROPHILS % (AUTO) 68.4 % (37-80); POTASSIUM 3.3 mMol/L (3.5-5.1)
[2017-12-06] MEDS: ENOXAPARIN 40 MG SOL SC SCH (08:10)
[2017-12-06] MEDS: SERTRALINE HYDROCHLORIDE 50 MG TAB PO SCH (08:40)
[2017-12-06] MEDS: LACTOBACILLUS ACIDOPHILUS/PE 1 TAB TAB PO SCH ×2 (08:40→20:07)
[2017-12-06] MEDS: CLOTRIMAZOLE 1% CREAM TOP SCH ×2 (08:40→20:08)
[2017-12-06] MEDS: VANCOMYCIN HCL 125 MG CAP PO SCH ×4 (08:40→20:08)
[2017-12-06] MEDS: DILTIAZEM ER 120 MG C24 PO SCH (08:40)
[2017-12-06] MEDS: BUMETANIDE 1 MG TAB PO SCH (08:41)
[2017-12-06] MEDS: METRONIDAZOLE 250 MG TAB PO SCH ×2 (13:42→20:07)
[2017-12-06 20:02] VITALS: RESP 20
[2017-12-07] MEDS: SODIUM CHLORIDE/KCL 20MEQ 1,000 ML IV SCH (02:55)
[2017-12-07 04:45] VITALS: O2SAT 94
[2017-12-07] MEDS: LEVOTHYROXINE SODIUM 50 MCG TAB PO SCH (06:24)
[2017-12-07 07:15] LABS: CALCIUM 7.2 mg/dl (8.5-10.1); CARBON DIOXIDE 22.8 mEq/L (21-32); CREATININE 0.77 mg/dl (0.60-1.00); POTASSIUM 3.2 mMol/L (3.5-5.1)
[2017-12-07 07:24] LABS: BASOPHILS % (AUTO) 1 % (0-3); EOSINOPHILS % (AUTO) 7 % (0-9); HEMATOCRIT 41 % (35-47); MEAN CORPUSCULAR HEMOGLOBIN 29.5 pg (27.0-32.0); MEAN CORPUSCULAR HGB CONC 31.8 gm/dl (32.0-36.0); MEAN CORPUSCULAR VOLUME 93 fL (81-99); MONOCYTES % (AUTO) 11.5 % (0-12); NEUTROPHILS % (AUTO) 53.7 % (37-80)
[2017-12-07 08:55] VITALS: BP 98/64; PULSE 76; TEMP 97.6
[2017-12-07] MEDS: BUMETANIDE 1 MG TAB PO SCH (09:29)
[2017-12-07] MEDS: SERTRALINE HYDROCHLORIDE 50 MG TAB PO SCH (09:30)
[2017-12-07] MEDS: LACTOBACILLUS ACIDOPHILUS/PE 1 TAB TAB PO SCH (09:30)
[2017-12-07] MEDS: DILTIAZEM ER 120 MG C24 PO SCH (09:30)
[2017-12-07] MEDS: METRONIDAZOLE 250 MG TAB PO SCH (09:31)
[2017-12-07] MEDS: VANCOMYCIN HCL 125 MG CAP PO SCH (09:33)
[2017-12-07] MEDS ORDERED: POTASSIUM CHLORIDE 2 MEQ/ML 40 MEQ, LIDOCAINE HCL 1% MDV 2 ML in SODIUM CHLORIDE 0.9% 5... IV ONE (09:33)
[2017-12-07] MEDS: ENOXAPARIN 40 MG SOL SC SCH (09:33)
[2017-12-07] MEDS: CLOTRIMAZOLE 1% CREAM TOP SCH (09:33)
[2017-12-07] MEDS ORDERED: POTASSIUM CHLORIDE 2 MEQ/ML SOL IV ONE (10:07)
[2017-12-07] MEDS ORDERED: LIDOCAINE HCL 1% MPF 30 SOL ONE (10:08)
== END 2017-12-07 11:20 | disposition short-term general hospital (02) | DRG 310 ==
LOC: ED 15:08 → ACUTE CARE 18:42 → UNDOADMIN 18:42 → ACUTE CARE 18:50
PROVIDERS: ADMIT Surgery; ATTEND Surgery
DX: K52.9 Noninfective gastroenteritis and colitis, unspecified (principal); E87.6 Hypokalemia; R53.1 Weakness; I47.1 Supraventricular tachycardia; E83.42 Hypomagnesemia; I10 Essential (primary) hypertension; E78.5 Hyperlipidemia, unspecified; E03.9 Hypothyroidism, unspecified; I48.91 Unspecified atrial fibrillation; I50.9 Heart failure, unspecified; Z95.0 Presence of cardiac pacemaker; R19.7 Diarrhea, unspecified
CPT/HCPCS: 36415; 74177; 80048; 83735; 84100; 84132; 85025; 96365; 96366; 99222; 99232; 99284; J1650; J3475; J3480; Q9967; A6232; A9270-GY; J2001; J3490

== ENCOUNTER 2018-01-03 09:32 | Emergency (ER) | payer MEDICARE, OTHER ==
[2018-01-03] MEDS ORDERED: SODIUM CHLORIDE 0.9% 1000ML 1,000 ML IV ONE ×3 (09:41→11:20)
[2018-01-03] MEDS ORDERED: METOPROLOL TARTRATE 5 MG/5 ML SOL IV ONE ×2 (10:03→10:12)
[2018-01-03 10:11] LABS: HEMATOCRIT 63 % (35-47); MEAN CORPUSCULAR HGB CONC 31.2 gm/dl (32.0-36.0); MEAN CORPUSCULAR VOLUME 93 fL (81-99)
[2018-01-03] MEDS ORDERED: METOCLOPRAMIDE HYDROCHLORIDE 5 MG/ML SOL IV ONE (10:11)
[2018-01-03 10:29] LABS: CALCIUM 10.1 mg/dl (8.5-10.1); CARBON DIOXIDE 18.6 mEq/L (21-32); CREATININE 3.56 mg/dl (0.60-1.00); MAGNESIUM 2.3 mg/dl (1.8-2.4); POTASSIUM 4.4 mMol/L (3.5-5.1)
[2018-01-03 10:30] LABS: TROP I 0.534 ng/ml (0.000-0.056)
[2018-01-03 10:37] LABS: HEMOGLOBIN 19.7 gm/dl (12.0-15.5)
[2018-01-03] MEDS ORDERED: PANTOPRAZOLE SODIUM IV SCH (10:45)
[2018-01-03] MEDS ORDERED: SODIUM CHLORIDE IV SCH (10:45)
[2018-01-03] MEDS ORDERED: METRONIDAZOLE 500 MG (PREMIX) 500 MG/100 ML SOL IV ONE ×2 (10:47→10:58)
[2018-01-03 10:50] VITALS: TEMP 98.8
[2018-01-03] MEDS ORDERED: PANTOPRAZOLE SODIUM 40 MG/10 ML PDS ONE (10:56)
[2018-01-03] MEDS ORDERED: ASPIRIN 325 MG TAB ONE (10:57)
[2018-01-03 11:21] LABS: BAND NEUTROPHILS % (MANUAL) 17 %; BASOPHILS % (MANUAL) 0 % (0-3); EOSINOPHILS % (MANUAL) 0 % (0-9); LYMPHOCYTES % (MANUAL) 12 % (10-50); MONOCYTES % (MANUAL) 14 % (0-12); NEUTROPHILS % (MANUAL) 57 % (37-80)
[2018-01-03 11:22] LABS: ANISOCYTOSIS SLIGHT
[2018-01-03 11:52] VITALS: RESP 25
[2018-01-03] MEDS ORDERED: ADENOSINE 3 MG/ML SOL IV ONE (11:52)
[2018-01-03] MEDS ORDERED: LACTATED RINGERS 1,000 ML IV ONE (12:30)
[2018-01-03 12:51] VITALS: BP 106/71; PULSE 99; O2SAT 91
[2018-01-04] MEDS ORDERED: ASPIRIN 325 MG TAB PO SCH (09:00)
== END 2018-01-03 12:33 | disposition short-term general hospital (02) | DRG 683 ==
LOC: ED 09:32
DX: N17.9 Acute kidney failure, unspecified (principal); A04.72 Enterocolitis due to Clostridium difficile, not specified as recurrent; E86.0 Dehydration; R74.8 Abnormal levels of other serum enzymes; I49.9 Cardiac arrhythmia, unspecified; I50.9 Heart failure, unspecified
CPT/HCPCS: 36415; 74176; 80048; 82272; 83735; 83880; 84100; 84484; 85007; 85027; 93005; 96365; 96366; 96374; 99070; 99285; 99291; J0153; J3490